=== PATIENT | male | born 2000 | race Caucasian/White ===

== ENCOUNTER 2021-12-05 10:28 | Emergency (ER) | payer BC ==
--- NOTE | 2021-12-05 12:02 | ED ---
Arrhythmia/Palpitations HPI - General Chief Complaint: Arrhythmia/Palpitations Stated Complaint: palpitations, nausea Source: patient, family, RN notes reviewed Mode of arrival: wheelchair Limitations: no limitations - History of Present Illness Initial Comments: Patient is a 21 year old male who presents to the ER with complaints of chest pain, shortness of breath, nausea, dizziness and palpitations. He had taken a new pre-workout today prior to exercising at the gym and then only was able to exercise for approximately 5 minutes prior to symptoms starting. He repo rts significant anxiety history with panic attacks and usually his symptoms are transient. He states he had a stress test through his school through a study program without any significant abnormalities. He reports that his blood pressure is usually well controlled. He is not currently on any medications for anxiety. He denies any other complaints or concerns. - Related Data Allergies Allergy/AdvReac Type Severity Reaction Status Date / Time No Known Allergies Allergy Verified 12/05/21 10:35 Review of Systems ROS Statement: Those systems with pertinent positive or pertinent negative responses have been documented in the HPI. ROS Other: All systems not noted in ROS Statement are negative. Past Medical History Past Medical History: No Reported History History of Any Multi-Drug Resistant Organisms: None Reported Past Surgical History: No Surgical Hx Reported Past Psychological History: Panic Disorder Smoking Status: Never smoker Past Alcohol Use History: Occasional Past Drug Use History: None Reported General Exam Limitations: no limitations General appearance: alert, in no apparent distress Head exam: Present: atraumatic, normocephalic, normal inspection Eye exam: Present: normal appearance, PERRL, EOMI. Absent: scleral icterus, conjunctival injection, periorbital swelling ENT exam: Present: normal exam, mucous membranes moist Neck exam: Present: normal inspection. Absent: tenderness, meningismus, lympha denopathy Respiratory exam: Present: normal lung sounds bilaterally. Absent: respiratory distress, wheezes, rales, rhonchi, stridor Cardiovascular Exam: Present: regular rate, normal rhythm, normal heart sounds. Absent: systolic murmur, diastolic murmur, rubs, gallop, clicks GI/Abdominal exam: Present: soft, normal bowel sounds. Absent: distended, tenderness, guarding, rebound, rigid Extremities exam: Present: normal inspection, full ROM, normal capillary refill. Absent: tenderness, pedal edema, joint swelling, calf tenderness Back exam: Present: normal inspection Neurological exam: Present: alert, oriented X3, CN II-XII intact Psychiatric exam: Present: normal affect, normal mood Skin exam: Present: warm, dry, intact, normal color. Absent: rash Course Vital Signs 12/05/21 12/05/21 10:30 14:07 Temperature 97.5 F L Pulse Rate 118 H Pulse Rate [ 65 Right Radial] Respiratory 18 Rate Blood Pressure 141/83 O2 Sat by Pulse 100 Oximetry Medical Decision Making - Medical Decision Making Bundle-branch noted with EKG otherwise no acute abnormalities repeat EKG shows similar findings with controlled rate. Will check lab scan use of pre-workout and extreme exercise however tachycardia and associated symptoms likely secondary to anxiety. Will monitor at this time. Labs without any abnormalities. Repeat EKG stable. On discussion with patient regarding use of stimulant and alternative techniques to help control anxiety. No indication for any medications to be provided at this time. Encouraged use of alternative techniques such as deep breathing and aromatherapy to help with anxiety levels. Advised to follow-up with primary care provider. Case discussed with Dr. Max - Lab Data Result diagrams: 12/05/21 12:19 12/05/21 12:19 Lab Results 12/05/21 12/05/21 12/05/21 Range/Units 12:19 12:19 12:19 WBC 8.0 (3.8-10.6) k/uL RBC 5.08 (4.30-5.90) m/uL Hgb 15.4 (13.0-17.5) gm/dL Hct 45.1 (39.0-53.0) % MCV 88.7 (80.0-100.0) fL MCH 30.3 (25.0-35.0) pg MCHC 34.2 (31.0-37.0) g/dL RDW 11.8 (11.5-15.5) % Plt Count 169 (150-450) k/uL MPV 8.8 Neutrophils % 83 % Lymphocytes % 11 % Monocytes % 3 % Eosinophils % 2 % Basophils % 1 % Neutrophils # 6.6 (1.3-7.7) k/uL Lymphocytes # 0.9 L (1.0-4.8) k/uL Monocytes # 0.3 (0-1.0) k/uL Eosinophils # 0.1 (0-0.7) k/uL Basophils # 0.1 (0-0.2) k/uL Sodium 140 (137-145) mmol/L Potassium 4.2 (3.5-5.1) mmol/L Chloride 106 (98-107) mmol/L Carbon Dioxide 20 L (22-30) mmol/L Anion Gap 14 mmol/L BUN 15 (9-20) mg/dL Creatinine 1.04 (0.66-1.25) mg/dL Est GFR (CKD-EPI)AfAm >90 (>60 ml/min/1.73 sqM) Est GFR (CKD-EPI)NonAf >90 (>60 ml/min/1.73 sqM) Glucose 139 H (74-99) mg/dL Calcium 9.6 (8.4-10.2) mg/dL Magnesium 2.0 (1.6-2.3) mg/dL Total Bilirubin 0.9 (0.2-1.3) mg/dL AST 35 (17-59) U/L ALT 28 (4-49) U/L Alkaline Phosphatase 102 (38-126) U/L Troponin I <0.012 (0.000-0.034) ng/mL Total Protein 7.5 (6.3-8.2) g/dL Albumin 5.0 (3.5-5.0) g/dL TSH 1.340 (0.465-4.680) mIU/L - EKG Data EKG Comments: EKG #1. Sinus tachycardia with T-wave abnormality ventricular rate 112 bpm SC interval 104 ms QRS duration 104 ms QT/QTC 332/388 ms PRT axis C 70, 83, 79 EKG #2. Sinus rhythm with sinus arrhythmia. Ventricular rate 70 bpm, SC interval 160 ms, QRS duration 109 ms QT/QTC 386/389 ms PRT axis he is 59, 72, 71 Disposition Clinical Impression: Tachycardia, Anxiety Disposition: HOME SELF-CARE Condition: Good Instructions (If sedation given, give patient instructions): Heart Palpitations (ED) Additional Instructions: Treatment plenty of fluids. Avoid caffeinated products and stimulants prior to exercise. Utilize alternative techniques to help with anxiety such as deep breathing and aromatherapy. Please follow-up with your primary care provider. Please return to the Emergency Department if symptoms worsen or any other concerns. Is patient prescribed a controlled substance at d/c from ED?: No Referrals: Wiliam Cabrera Jr, [Primary Care Provider] - 1-2 days Time of Disposition: 14:39
[2021-12-05 12:28] LABS: Basophils # (A) 0.1 k/uL (0-0.2); Basophils % (A) 1 %; Eosinophils # (A) 0.1 k/uL (0-0.7); Eosinophils % (A) 2 %; HCT 45.1 % (39.0-53.0); HGB 15.4 gm/dL (13.0-17.5); Lymphocytes # (A) 0.9 k/uL (1.0-4.8); Lymphocytes % (A) 11 %; MCH 30.3 pg (25.0-35.0); MCHC 34.2 g/dL (31.0-37.0); MCV 88.7 fL (80.0-100.0); Mean Platelet Volume 8.8; Monocytes # (A) 0.3 k/uL (0-1.0); Monocytes % (A) 3 %; Neutrophils # (A) 6.6 k/uL (1.3-7.7); Neutrophils % (A) 83 %; Platelet Count 169 k/uL (150-450); RBC 5.08 m/uL (4.30-5.90); RDW 11.8 % (11.5-15.5)
[2021-12-05 12:40] LABS: ALT 28 U/L (4-49); AST 35 U/L (17-59); African American GFR (CKD) >90 (>60 ml/min/1.73 sqM); Alkaline Phosphatase 102 U/L (38-126); Anion Gap 14 mmol/L; Blood Urea Nitrogen 15 mg/dL (9-20); Calcium 9.6 mg/dL (8.4-10.2); Carbon Dioxide 20 mmol/L (22-30); Chloride 106 mmol/L (98-107); Glucose 139 mg/dL (74-99); Non-African American GFR(CKD) >90 (>60 ml/min/1.73 sqM); Potassium 4.2 mmol/L (3.5-5.1); Sodium 140 mmol/L (137-145); Total Bilirubin 0.9 mg/dL (0.2-1.3); Total Protein 7.5 g/dL (6.3-8.2)
[2021-12-05 14:38] VITALS: BP 112/71; PULSE 64; RESP 22; TEMP 98.1
== END 2021-12-05 13:55 | disposition home or self-care (01) ==
LOC: EC 10:28
DX: R00.0 Tachycardia, unspecified (principal); F41.9 Anxiety disorder, unspecified
CPT/HCPCS: 36415; 80053; 83735; 84443; 84484; 85025; 93005; 99285